=== PATIENT | female | born 2000 | race Caucasian/White ===

== ENCOUNTER 2024-12-11 15:41 | Emergency (ER) | payer BC, SELFPAY ==
--- NOTE | ~2024-12-11 | US_ITS ---
CLINICAL HISTORY: right torsion r o US pelvis transvaginal and transabdominal with Doppler Comparison: None Findings: Transvaginal scanning performed. Transabdominal scanning performed as well. Anteverted uterus is 6.4 cm length. Normal myometrium. Endometrium 4 mm thickness. Trace fluid along the cervix. Right ovary 2.9 x 1.9 x 1.5 cm. Left ovary 1.9 x 0.9 x 1.2 cm. Normal color Doppler of both ovaries. No free fluid. IMPRESSION: No evidence of ovarian torsion. This document has been electronically signed by: Jimbo Celaya MD on 12/11/2024 21:12:48
--- NOTE | ~2024-12-11 | CT_ITS ---
CLINICAL HISTORY: pain, RLQ, no appendix CT abdomen and pelvis with contrast Comparison: None Findings: Diffuse esophageal mural thickening, nonspecific. Hepatomegaly. Distended gallbladder. No gallstones Hydronephrosis. Suspected early excretory contrast in the right renal calyces difficult to exclude subtle calculi. Ascending colonic mural thickening, can be seen with colitis. No bowel obstruction. Possible tiny left ovarian cysts measuring 1 cm. Scattered colonic diverticulosis without diverticulitis. Post appendectomy. The bones are intact. Nonspecific scattered air in the endovaginal canal. IMPRESSION: Possible mild right-sided colitis. This document has been electronically signed by: Jimbo Celaya MD on 12/11/2024 23:33:03
[2024-12-11 15:45] VITALS: BP 139/91; PULSE 90; RESP 20; TEMP 37; O2SAT 97; BMI 18.2
--- NOTE | 2024-12-11 15:46 | ED_ITS ---
HPI - Nausea/Vomiting/Diarrhea General Chief complaint: Abdominal Pain Stated complaint: abd pain since 4am/vomiting Time Seen by Provider: 12/11/24 18:55 Source: patient Limitations: no limitations History of Present Illness ED Provider: Rivka Mcfadden PA-C HPI Narrative: 24-year-old otherwise healthy female who is status post appendectomy presents with the abdominal pain since earlier this morning. Pain over lower abdomen, right greater than left, is nonradiating, she is unable to describe the nature of her discomfort. Associated nausea vomiting, denies diarrhea. Denies sick contacts with same symptoms, no fevers. Denies risk for STD, vaginal discharge. Denies if she has had ovarian cyst; she has not had a pelvic exam. Associated nausea: Yes Related Data Previous Rx's ?Medication ?Instructions ?Recorded ketorolac 10 mg tablet 10 mg PO Q6H PRN pain #20 tabs 12/12/24 ondansetron HCl 4 mg tablet 4 mg PO Q8H PRN nausea and 12/12/24 vomiting #10 tabs sulfamethoxazole 800 1 tab PO BID #9 tabs 12/12/24 mg-trimethoprim 160 mg tablet (Bactrim DS) Allergies Allergy/AdvReac Type Severity Reaction Status Date / Time tree nut Allergy Anaphylaxis Verified 12/11/24 15:47 Review of Systems 2 Review of Systems: Yes all other systems are reviewed and are negative Constitutional: Constitutional: Denies fatigue and Denies fever(s) Cardiovascular: Cardiovascular: Denies chest pain and Denies dyspnea Respiratory: Respiratory: Denies cough and Denies dyspnea Gastrointestinal: Gastrointestinal: Reports abdominal pain, Denies diarrhea, Reports nausea and Reports vomiting Genitourinary: Genitourinary: Denies hematuria, Denies dysuria, Denies flank pain and Denies vaginal discharge Musculoskeletal: Musculoskeletal: Denies back pain Endocrine: Endocrine: Denies fatigue PMFSH Past Medical History Attestation statement: The following information was validated with the patient. Physical Exam 2 Vital Signs: Vital Signs: Last Vital Signs Temp 97.4 F 12/12/24 00:37 Pulse 78 12/12/24 00:37 Resp 16 12/12/24 00:37 BP 121/74 12/12/24 00:37 Pulse Ox 98 12/12/24 00:37 O2 Del Method Room Air 12/12/24 00:37 BMI result Body Mass Index 18.2 Const: Other: Alert, appears extremely uncomfortable Orientation/consciousness: patient oriented x3 Resp: Effort & Inspection: normal respiratory effort Cardio: Other: Normal peripheral perfusion GI: Other: Abdomen is soft, nondistended, moderate tenderness right lower quadrant and right pelvic region with mild involuntary guarding : Other: Deferring pelvic Skin: Other: Warm dry no rash Neuro: General: patient oriented x3, gait normal, no focal motor deficits and CN's II-XI intact bilaterally Psych: Other: Cooperative Course Course Course Narrative: This is a Rapid Medical Examination (RME) performed by Noe Dominguez PA-C in triage. Full HPI, ROS, assessment and treatment plan per primary provider in the Main ED. 24 yo female here for eval of nausea, vomiting and abdominal pain which began at 0400 this morning. unable to tolerate PO. hx of similar - states work up was unremarkable. denes etoh consumption. denies marijuana use. Plan: labs, viral swabs, preg/UA, zofran given at 1549 Medications Administered Discontinued Medications Generic Name Dose Route Start Last Admin Trade Name Chivoq PRN Reason Stop Dose Admin Sodium Chloride 1,000 mls @ 999 mls/hr 12/11/24 19:15 12/11/24 20:49 Ns IV 12/11/24 20:15 Infused .Q1H1M LETICIA Infusion Iohexol 85 ml 12/11/24 22:12 12/11/24 22:12 Iohexol 350 Mg/Ml 100 Ml Infus..Btl IV 12/11/24 22:13 85 ml ONCE ONE Administration Ketorolac Tromethamine 15 mg 12/11/24 23:49 12/12/24 00:03 Ketorolac Tromethamine 15 Mg/Ml Vial IVPUSH 12/11/24 23:50 15 mg ONCE ONE Administration Lorazepam 1 mg 12/11/24 19:14 12/11/24 19:31 Lorazepam 2 Mg/Ml Vial IVPUSH 12/11/24 19:15 1 mg STAT STA Administration Morphine Sulfate 4 mg 12/11/24 19:14 12/11/24 19:30 Morphine Sulfate 4 Mg/Ml Cartridge IVPUSH 12/11/24 19:15 4 mg ONCE ONE Administration Protocol Ondansetron HCl 4 mg 12/11/24 15:47 12/11/24 15:49 Ondansetron Odt 4 Mg Tab.Librado BLACKBURN 12/11/24 15:48 4 mg ONCE ONE Administration Ondansetron HCl 4 mg 12/11/24 19:06 12/11/24 19:30 Ondansetron Hcl 4 Mg/2 Ml Vial IVPUSH 12/11/24 19:07 4 mg ONCE ONE Administration Trimethoprim/Sulfamethoxazole 1 tab 12/11/24 23:59 12/12/24 00:03 Sulfamethox/Trimeth 800/160 Tablet PO 12/12/24 00:00 1 tab ONCE ONE Administration Medical Decision Making Medical Decision Making [facility] Narrative: 24-year-old otherwise healthy female who is status post appendectomy presents with the abdominal pain since earlier this morning. Pain over lower abdomen, right greater than left, is nonradiating, she is unable to describe the nature of her discomfort. Associated nausea vomiting, denies diarrhea. Denies sick contacts with same symptoms, no fevers. Denies risk for STD, vaginal discharge. Denies if she has had ovarian cyst; she has not had a pelvic exam. No chronic issues History: Per patient I have considered the following differential diagnoses: Sigmoid diverticulitis, torsion, TOA, renal colic, ectopic Plan: I am considering torsion, we will be starting with a transvaginal ultrasound. We will be giving Toradol and antiemetic for her discomfort. If the ultrasound is negative I will be obtaining a CT scan, she does have a significant leukocytosis. Could be sigmoid diverticulitis, however she does not have any diarrhea. Thought about renal colic, however she has never had any flank pain, her pain has been focal within the abdomen/pelvic region, she also has no related symptoms. This is not ectopic, she is not . Thought about TOA, however she has no new vaginal discharge, she has no risk factors for STD, deferring a pelvic exam for now. I have independently reviewed the following tests: Labs: Significant leukocytosis, not anemic, no electrolyte abnormality, not , viral panel negative Transvaginal ultrasound: IMPRESSION: No evidence of ovarian torsion. CT scan abdomen:IMPRESSION: Possible mild right-sided colitis. Lab Data 12/11/24 15:56 12/11/24 15:56 Labs: Lab Results 12/11/24 Range/Units 15:56 WBC 21.6 H (4.8-10.8) X10*3/uL RBC 5.00 (4.20-5.50) X10*6/uL Hgb 14.0 (12.0-16.0) g/dl Hct 40.6 (37.0-47.0) % MCV 81.2 (80.0-98.0) fL MCH 28.0 (27.0-33.0) pg MCHC 34.5 (31.0-35.0) g/dl RDW 13.5 (11.0-16.0) % Plt Count 376 (160-400) X10*3/uL MPV 10.2 (9.4-12.3) fL Immature Gran % (Auto) 0.5 H (0.0-0.4) % Neut % (Auto) 86.5 H (45-73) % Lymph % (Auto) 9.2 L (20-40) % [place] % (Auto) 3.4 (2-11) % Eos % (Auto) 0.1 (0-4) % Baso % (Auto) 0.3 (0-2) % Lymph # (Auto) 2.0 (1.2-4.9) X10*3/uL [place] # (Auto) 0.7 (0.1-1.2) X10*3/uL Eos # (Auto) 0.0 (0.0-0.4) X10*3/uL Baso # (Auto) 0.1 (0.0-0.2) X10*3/uL Abs Immat Gran (auto) 0.10 H (0.00-0.03) X10*3/uL Absolute Neuts (auto) 18.7 H (2.0-8.3) x10*3/uL Absolute Nucleated RBC 0.000 (0.0-0.012) X10*3/uL Nucleated RBC % (auto) 0.0 (0.0-0.2) /100WBC Sodium 142 (135-145) mmol/L Potassium 3.9 (3.3-5.1) mmol/L Chloride 104 (96-108) mmol/L Carbon Dioxide 25 (22-29) mmol/L Anion Gap 17 (12-20) BUN 11 (9-16) mg/dL Creatinine 0.81 (0.5-1.4) mg/dL Estim Creat Clear Calc 82.7 Estimated GFR > 60 Random Glucose 124 H (60-115) mg/dL Calcium 9.9 (8.4-10.2) mg/dL Magnesium 1.6 (1.6-2.6) mg/dL Total Bilirubin 0.9 (0.0-1.0) mg/dL AST 37 H (5-31) U/L ALT 24 (0-31) U/L Alkaline Phosphatase 100 (39-117) U/L Total Protein 8.4 H (6.5-8.0) g/dL Albumin 4.7 (3.5-5.0) g/dL Lipase 16 (8-78) U/L Beta HCG, Quant < 2 mIU/mL Influenza Type A (PCR) NEGATIVE (Negative) Influenza Type B (PCR) NEGATIVE (Negative) RSV RNA Qual (PCR) NEGATIVE (Negative) SARS-CoV-2 RNA (RT-PCR) NEGATIVE (Negative) Discharge Plan Discharge Clinical Impression: Colitis Patient Disposition: Home, Self-Care Instructions: Colitis (ED) Additional Instructions: The CT scan revealed that you have colitis. See home care instructions. Take the Bactrim, this is an antibiotic, as directed. Uses Zofran as needed for nausea. Use the ketorolac as needed for pain. Follow up with your primary care provider as needed. With a transvaginal ultrasound was normal. Prescriptions: New sulfamethoxazole-trimethoprim [Bactrim DS] 800-160 mg tablet 1 tab PO BID Qty: 9 0RF ketorolac 10 mg tablet 10 mg PO Q6H PRN (Reason: pain) Qty: 20 0RF Rx Instructions: maximum total duration of 5 days from all oral, intranasal, or parenteral formulations. The patient had an IV dose of Toradol here in the emergency department. ondansetron HCl 4 mg tablet 4 mg PO Q8H PRN (Reason: nausea and vomiting) Qty: 10 0RF Stand Alone Forms: Work/School Release Interventions: ED Discharge Assessment Last Done: 12/12/24 00:37 Discharge Date/Time: 12/12/24 00:37 Print Language: Greenlandic
[2024-12-11] MEDS: Ondansetron ODT 4 MG TAB.RAPDIS TRANSLINGU (15:49)
[2024-12-11 16:00] LABS: MANUAL DIFF FLAG NO
[2024-12-11 16:02] LABS: Basophils Absolute Auto 0.1 X10*3/uL (0.0-0.2); Basophils Percent Auto 0.3 % (0-2); Eosinophils Percent Auto 0.1 % (0-4); Hematocrit 40.6 % (37.0-47.0); Imm Gran Pct Auto 0.5 % (0.0-0.4); Lymphocytes Percent Auto 9.2 % (20-40); Mean Corpuscular HGB Conc 34.5 g/dl (31.0-35.0); Mean Corpuscular Volume 81.2 fL (80.0-98.0); Mean Platelet Volume 10.2 fL (9.4-12.3); Monocytes Absolute Auto 0.7 X10*3/uL (0.1-1.2); Monocytes Percent Auto 3.4 % (2-11); Neutrophils Absolute Auto 18.7 x10*3/uL (2.0-8.3); Neutrophils Percent Auto 86.5 % (45-73); Platelet Count 376 X10*3/uL (160-400); Red Cell Distribution Width 13.5 % (11.0-16.0); White Blood Count 21.6 X10*3/uL (4.8-10.8)
[2024-12-11 16:18] LABS: Alanine Aminotransferase 24 U/L (0-31); Albumin Level 4.7 g/dL (3.5-5.0); Alkaline Phosphatase 100 U/L (39-117); Anion Gap 17 (12-20); Aspartate Amino Transferase 37 U/L (5-31); Bilirubin Total 0.9 mg/dL (0.0-1.0); Blood Urea Nitrogen 11 mg/dL (9-16); Calcium 9.9 mg/dL (8.4-10.2); Carbon Dioxide 25 mmol/L (22-29); Chloride 104 mmol/L (96-108); Creatinine Clr Calc Pharmacy 82.7; Estimated Glomerular Filt Rate > 60; Glucose Random 124 mg/dL (60-115); Lipase 16 U/L (8-78); Magnesium 1.6 mg/dL (1.6-2.6); Potassium 3.9 mmol/L (3.3-5.1); Sodium 142 mmol/L (135-145); Total Protein 8.4 g/dL (6.5-8.0)
[2024-12-11 16:38] LABS: Influenza A PCR NEGATIVE (Negative); Influenza B PCR NEGATIVE (Negative); Resp Syncy Virus RNA Qual PCR NEGATIVE (Negative); SARS COV2 PCR INHOUSE NEGATIVE (Negative)
[2024-12-11 19:23] LABS: HCG Quantitative < 2 mIU/mL
[2024-12-11] MEDS: Morphine Sulfate 4 MG/ML CARTRIDGE IVPUSH (19:30)
[2024-12-11] MEDS: ondansetron HCL 4 MG/2 ML VIAL IVPUSH (19:30)
[2024-12-11] MEDS: LORazepam 2 MG/ML VIAL 1 MG IVPUSH (19:31)
[2024-12-11] MEDS: 0.9 % Sodium Chloride 1,000 ML 999 ML IV (19:31)
--- NOTE | 2024-12-11 19:38 | PC.NURSE ---
Report taken from Stephanie RUBY assumed care of pt at 1900. Pt A&Ox3 skin pwd respirations even unlabored. Endorsing diffuse mid abd pain, N/V. Denies diarrhea, denies urinary symptoms. LMP 12/03/24, denies . Provider to bedside for eval. IV access obtained, pt medicated per DEC. Off floor for US at this time.
--- NOTE | 2024-12-11 20:49 | PC.NURSE ---
Pt returned from US, awaiting results. Reports positive relief from previously administered pain med.
[2024-12-11 20:54] VITALS: BP 121/74; PULSE 78; RESP 16; TEMP 36.3; O2SAT 98
--- NOTE | 2024-12-11 21:48 | PC.NURSE ---
Pt continues to rest on stretcher, NAD. US negative, pt awaiting CT, awrae of plan of care. Offers no complaints at this time.
[2024-12-11] MEDS: iohexoL 350 MG/ML 100 ML INFUS..BTL 85 ML IV (22:12)
[2024-12-12] MEDS: Ketorolac Tromethamine 15 MG/ML VIAL IVPUSH (00:03)
[2024-12-12] MEDS: Sulfamethox/Trimeth 800/160 TABLET 1 TAB PO (00:03)
[2024-12-12 00:37] VITALS: BP 121/74; PULSE 78; RESP 16; TEMP 36.3; O2SAT 98
== END 2024-12-12 00:37 | disposition home or self-care (01) ==
PROVIDERS: Physician Assistant Medical; Emergency Provider Emergency Medicine Emergency Medical Services; PCP Emergency Medicine
DX: K52.9 Noninfective gastroenteritis and colitis, unspecified (principal); R10.31 Right lower quadrant pain; Z03.818 Encounter for observation for suspected exposure to other biological agents ruled out
CPT/HCPCS: 0241U; 74177; 76830; 76856; 80053; 83690; 83735; 84702; 85025; 93975; 96361; 96374; 96375; 99284; 99285; J1885; J2060; J2270; J2405; Q9967

== ENCOUNTER → 2024-12-11 19:15 | Outpatient (BNV) | payer BC, SELFPAY | PROVIDERS: Emergency Provider Emergency Medicine Emergency Medical Services; PCP Emergency Medicine; Visit Provider Radiology Diagnostic Radiology | DX: R10.31 Right lower quadrant pain (principal) | CPT/HCPCS: 74177; 76830; 76856; 93975 ==

== ENCOUNTER 2024-12-22 13:15 | Emergency (ER) | payer BC, SELFPAY ==
--- NOTE | ~2024-12-22 | XR_ITS ---
CLINICAL HISTORY: pain 1 view abdomen Comparison: None Findings: No pneumoperitoneum or pneumatosis. Mild fecal retention within the colon. No abnormal calcifications. No acute fractures. IMPRESSION: Mild fecal retention. No small bowel obstruction or free air. This document has been electronically signed by: Kobe Orona MD on 12/22/2024 18:02:42
[2024-12-22 13:54] VITALS: BP 114/75; PULSE 83; RESP 14; TEMP 36.3; O2SAT 97; BMI 20.5
--- NOTE | 2024-12-22 13:56 | ED.GENADULT ---
HPI - General Adult General Chief complaint: Abdominal Pain Stated complaint: Lower Ab Pain Time Seen by Provider: 12/22/24 17:01 Source: patient, RN notes reviewed and old records reviewed Mode of arrival: ambulatory Limitations: no limitations History of Present Illness ED Provider: Trell JUÁREZ narrative: 24-year-old female presents for evaluation of generalized abdominal pain. Patient reports associated nausea. The pain is worse with movement and standing up. ? Seen here about 10 days ago or similar symptoms, however at that time she reports she was vomiting significant has not been vomiting. She was diagnosed with colitis, discharged with Zofran, ketorolac and Bactrim double strength She is status post appendectomy from about 2 years ago She also had a pelvic ultrasound on her recent visit 10 days ago that was unremarkable The patient reports that she called her primary doctor and referred back to the ER today Related Data Previous Rx's ?Medication ?Instructions ?Recorded ketorolac 10 mg tablet 10 mg PO Q6H PRN pain #20 tabs 12/12/24 ondansetron HCl 4 mg tablet 4 mg PO Q8H PRN nausea and 12/12/24 vomiting #10 tabs sulfamethoxazole 800 1 tab PO BID #9 tabs 12/12/24 mg-trimethoprim 160 mg tablet (Bactrim DS) polyethylene glycol 3350 17 gram 17 g PO DAILY PRN constipation #14 12/22/24 oral powder packet (Miralax) ea Allergies Allergy/AdvReac Type Severity Reaction Status Date / Time tree nut Allergy Anaphylaxis Verified 12/22/24 13:56 Review of Systems Constitutional: Constitutional: Denies chills, Denies fever(s) and Denies frequent falls ENT: Denies vertigo and Denies dizziness Cardiovascular: Cardiovascular: Denies chest pain Respiratory: Respiratory: Denies cough Gastrointestinal: Gastrointestinal: Reports abdominal pain, Denies diarrhea, Denies loose stools, Reports nausea and Denies vomiting Genitourinary: Genitourinary: Denies pelvic pain and Denies vaginal discharge Musculoskeletal: Musculoskeletal: Denies back pain Integumentary/Breasts: Skin/Breast: Denies rash Neurologic: Denies vertigo, Denies dizziness and Denies frequent falls PMFSH Social History Social History Advance Directives: No Advance Directives Information Provided: No Physical Exam ED Vital Signs: Vital Signs - 24 hr 12/22/24 13:54 12/22/24 18:50 Temperature 97.4 F 97.7 F Pulse Rate 83 64 Respiratory Rate 14 18 Blood Pressure 114/75 129/70 Pulse Oximetry 97 98 Oxygen Delivery Method Room Air Room Air BMI result Body Mass Index 20.5 Const General: healthy appearing, comfortable, no acute distress, alert and awake Nutritional Appearance: well nourished Orientation/consciousness: patient oriented x3 HENMT Head: Yes normocephalic and Yes atraumatic Eyes Eyelids: Yes eyelids normal Conjunctivae: conjunctivae normal Sclerae: sclerae normal Corneas: corneas normal Pupils: Equal, round and reactive pupils present EOM: EOMs intact bilaterally Neck Neck: Yes full ROM Resp Effort & Inspection: normal respiratory effort, able to speak in complete sentences and not labored GI Inspection: No distended Palpation (GI): Soft to palpation, not firm, Tenderness to palpation present (GI) in the epigastrum and periumbilically, no guarding and not rigid Skin General skin exam: elasticity normal Neuro General: patient oriented x3 Cranial nerves: Yes Equal, round and reactive pupils present and Yes Bilaterally intact EOM present Cognition (Neuro): normal cognition Extrem Other: Moving all extremities well without any obvious deformities Course Course Course Narrative: This is a rapid medical exam performed by Rivka Mcfadden PA-C. The patient is a 24-year-old female who presents with the abdominal pain x3 days. Pain somewhat generalized, most prominent over mid to upper abdomen. Associated nausea. To note the patient was seen recently and was diagnosed with colitis, she had a period of reprieve from her symptoms, however they returned. On exam her abdomen is soft, nondistended, mild tenderness over right lower abdomen. Plan to screen basic labs, holding on imaging for now. The patient was stable and can return to the waiting room pending her full medical assessment. Medical Decision Making Medical Decision Making MDM Narrative: 24-year-old female pain with nausea. She was status post appendectomy. I reviewed her recent visit from [address] scan showed a possible colitis for which she was treated with antibiotics. Today her leukocytosis has resolved, she has no left shift. No electrolyte abnormalities, urinalysis is clear, no evidence of infection. I also reviewed the patient's pelvic ultrasound which was unremarkable. She has no signs or symptoms of sexually transmitted infection, we will get a KUB to evaluate for constipation. The patient reports that she was passing flatus, less likely to be obstructed. Differential Diagnosis Differential Diagnoses: The differential diagnosis associated with the presentation includes Constipation Bowel obstruction Ileus Colitis Diverticulitis UTI Ovarian cyst Ovarian torsion less likely PID less likely Lab Data MDM Lab Attestation statement: I reviewed the patient's lab results. As above 12/22/24 14:04 12/22/24 14:04 Labs: Lab Results 12/22/24 12/22/24 Range/Units 14:04 14:16 WBC 9.1 (4.8-10.8) X10*3/uL RBC 4.74 (4.20-5.50) X10*6/uL Hgb 13.0 (12.0-16.0) g/dl Hct 38.4 (37.0-47.0) % MCV 81.0 (80.0-98.0) fL MCH 27.4 (27.0-33.0) pg MCHC 33.9 (31.0-35.0) g/dl RDW 13.5 (11.0-16.0) % Plt Count 306 (160-400) X10*3/uL MPV 10.1 (9.4-12.3) fL Immature Gran % (Auto) 0.3 (0.0-0.4) % Neut % (Auto) 55.6 (45-73) % Lymph % (Auto) 33.3 (20-40) % [place] % (Auto) 5.7 (2-11) % Eos % (Auto) 4.9 H (0-4) % Baso % (Auto) 0.2 (0-2) % Lymph # (Auto) 3.0 (1.2-4.9) X10*3/uL [place] # (Auto) 0.5 (0.1-1.2) X10*3/uL Eos # (Auto) 0.4 (0.0-0.4) X10*3/uL Baso # (Auto) 0.0 (0.0-0.2) X10*3/uL Abs Immat Gran (auto) 0.03 (0.00-0.03) X10*3/uL Absolute Neuts (auto) 5.0 (2.0-8.3) x10*3/uL Absolute Nucleated RBC 0.000 (0.0-0.012) X10*3/uL Nucleated RBC % (auto) 0.0 (0.0-0.2) /100WBC Sodium 139 (135-145) mmol/L Potassium 3.8 (3.3-5.1) mmol/L Chloride 107 (96-108) mmol/L Carbon Dioxide 25 (22-29) mmol/L Anion Gap 11 L (12-20) BUN 9 (9-16) mg/dL Creatinine 0.75 (0.5-1.4) mg/dL Estim Creat Clear Calc 88.7 Estimated GFR > 60 Random Glucose 94 (60-115) mg/dL Calcium 9.4 (8.4-10.2) mg/dL Magnesium 1.9 (1.6-2.6) mg/dL Total Bilirubin 0.6 (0.0-1.0) mg/dL AST 26 (5-31) U/L ALT 16 (0-31) U/L Alkaline Phosphatase 72 (39-117) U/L Total Protein 7.3 (6.5-8.0) g/dL Albumin 4.1 (3.5-5.0) g/dL Lipase 22 (8-78) U/L Beta HCG, Quant < 2 mIU/mL Urine Color Yellow Urine Appearance Clear Urine pH 7.0 (5.0-9.0) Ur Specific [place] 1.015 (1.005-1.025) Urine Protein Negative (Neg-Trace) mg/dL Urine Glucose (UA) Negative (Negative) mg/dL Urine Ketones Negative (Negative) mg/dL Urine Blood Negative (Negative) Urine Nitrite Negative (Negative) Ur Leukocyte Esterase Negative (Negative) Independent Interpretation I performed an independent interpretation of an: Plain X-Ray Interpretation: Agree with Radiology interpretation Radiology Impression Discussion of test interpretation with radiology: I have reviewed the radiologist's reading. Radiologist Impression: Findings: No pneumoperitoneum or pneumatosis. Mild fecal retention within the colon. No abnormal calcifications. No acute fractures. IMPRESSION: Mild fecal retention. No small bowel obstruction or free air. This document has been electronically signed by: Kobe Orona MD on 12/22/2024 18:02:42 Discharge Plan Discharge Clinical Impression: Constipation Patient Disposition: Home, Self-Care Instructions: Constipation (ED), High Fiber Diet (ED) Additional Instructions: Your blood work today was reassuring. Your urinalysis did not show any evidence of infection. Your x-ray does show constipation mostly on the right lower side I recommend increasing fluid intake and a high-fiber diet You may also take MiraLax every night for the next week Prescriptions: New polyethylene glycol 3350 [Miralax] 17 gram powder in packet 17 g PO DAILY PRN (Reason: constipation) Qty: 14 0RF No Action sulfamethoxazole-trimethoprim [Bactrim DS] 800-160 mg tablet 1 tab PO BID Qty: 9 0RF ketorolac 10 mg tablet 10 mg PO Q6H PRN (Reason: pain) Qty: 20 0RF Rx Instructions: maximum total duration of 5 days from all oral, intranasal, or parenteral formulations. The patient had an IV dose of Toradol here in the emergency department. ondansetron HCl 4 mg tablet 4 mg PO Q8H PRN (Reason: nausea and vomiting) Qty: 10 0RF Stand Alone Forms: Work/School Release Print Language: Spanish
[2024-12-22 14:12] LABS: MANUAL DIFF FLAG NO
[2024-12-22 14:17] LABS: Basophils Percent Auto 0.2 % (0-2); Eosinophils Absolute Auto 0.4 X10*3/uL (0.0-0.4); Eosinophils Percent Auto 4.9 % (0-4); Hematocrit 38.4 % (37.0-47.0); Imm Gran Abs Auto 0.03 X10*3/uL (0.00-0.03); Imm Gran Pct Auto 0.3 % (0.0-0.4); Lymphocytes Percent Auto 33.3 % (20-40); Mean Corpuscular HGB Conc 33.9 g/dl (31.0-35.0); Mean Corpuscular Hemoglobin 27.4 pg (27.0-33.0); Mean Platelet Volume 10.1 fL (9.4-12.3); Monocytes Absolute Auto 0.5 X10*3/uL (0.1-1.2); Monocytes Percent Auto 5.7 % (2-11); Neutrophils Percent Auto 55.6 % (45-73); Platelet Count 306 X10*3/uL (160-400); Red Blood Count 4.74 X10*6/uL (4.20-5.50); Red Cell Distribution Width 13.5 % (11.0-16.0); White Blood Count 9.1 X10*3/uL (4.8-10.8)
[2024-12-22 14:31] LABS: Appearance Urine Clear; Color Urine Yellow; Glucose Urine UA Negative (Negative); Leukocyte Esterase Urine Negative (Negative); Nitrite Urine Negative (Negative); Specific Gravity - Urine 1.015 (1.005-1.025); Urine Blood Negative (Negative); Urine Ketones Negative (Negative); Urine Protein Negative (Neg-Trace)
[2024-12-22 14:33] LABS: Alanine Aminotransferase 16 U/L (0-31); Albumin Level 4.1 g/dL (3.5-5.0); Alkaline Phosphatase 72 U/L (39-117); Anion Gap 11 (12-20); Aspartate Amino Transferase 26 U/L (5-31); Bilirubin Total 0.6 mg/dL (0.0-1.0); Blood Urea Nitrogen 9 mg/dL (9-16); Calcium 9.4 mg/dL (8.4-10.2); Carbon Dioxide 25 mmol/L (22-29); Chloride 107 mmol/L (96-108); Creatinine Clr Calc Pharmacy 88.7; Estimated Glomerular Filt Rate > 60; Glucose Random 94 mg/dL (60-115); HCG Quantitative < 2 mIU/mL; Lipase 22 U/L (8-78); Magnesium 1.9 mg/dL (1.6-2.6); Potassium 3.8 mmol/L (3.3-5.1); Sodium 139 mmol/L (135-145); Total Protein 7.3 g/dL (6.5-8.0)
[2024-12-22 18:50] VITALS: BP 129/70; PULSE 64; RESP 18; TEMP 36.5; O2SAT 98
[2024-12-22] MEDS: Ketorolac Tromethamine 30 MG/ML VIAL IM (19:37)
[2024-12-22] MEDS: Ondansetron ODT 4 MG TAB.RAPDIS TRANSLINGU (19:38)
[2024-12-22 19:47] VITALS: BP 129/70; PULSE 64; RESP 18; TEMP 36.5; O2SAT 98
== END 2024-12-22 19:49 | disposition home or self-care (01) ==
PROVIDERS: Physician Assistant Medical; Emergency Provider Internal Medicine; PCP Internal Medicine
DX: K59.00 Constipation, unspecified (principal); R10.30 Lower abdominal pain, unspecified; R10.2 Pelvic and perineal pain
CPT/HCPCS: 36415; 74018; 80053; 81003; 83690; 83735; 84702; 85025; 96372; 99283; 99284; J1885

== ENCOUNTER → 2024-12-22 17:22 | Outpatient (BNV) | payer BC, SELFPAY | PROVIDERS: Emergency Provider Internal Medicine; PCP Internal Medicine; Visit Provider Radiology Vascular & Interventional Radiology | DX: R10.9 Unspecified abdominal pain (principal) | CPT/HCPCS: 74018 ==